=== PATIENT | female | born 1970 | race Caucasian/White ===

== ENCOUNTER 2017-08-02 13:45 | Emergency (ER) | payer MEDICARE, OTHER ==
[~2017-08-02] VITALS: Ht 170.2 cm; Wt 72.7 kg
[~2017-08-02 13:45] MED LIST: ARIP10TA13 PO; ARIP5TAB7 PO; CRES10 PO; DEXL60CA2 PO; DIVA250T60 PO; DOCU-144 PO; FER325 PO; MELO7.5O PO; METH500T PO; PARO20TA58 PO; QUET400T PO; TRAM50TA2 PO; TRAZ50TA18 PO
[2017-08-02 13:55] VITALS: Ht 170.2 cm; Wt 72.7 kg
[2017-08-02] MEDS ORDERED: HYDROCODONE/APAP (10/325) TAB PO ONE (14:30)
[2017-08-02] MEDS ORDERED: SILVER SULFADIAZINE 1% 50 GM CR TOP ONE (14:30)
[2017-08-02] MEDS ORDERED: SILVER SULFADIAZINE 1% 25 GM CR TOP ONE (15:00)
[2017-08-02] MEDS ORDERED: SILVER SULFADIAZINE 1% 25 GM CR TOP SCH (15:00)
[2017-08-02] MEDS ORDERED: HYDR-902 PO (15:27)
[2017-08-02] MEDS ORDERED: SLSL1C50 TOP (15:27)
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
== END 2017-08-02 16:02 | disposition home or self-care (01) ==
LOC: E/R 13:45
DX: T24.111A Burn of first degree of right thigh, initial encounter (principal); X10.0XXA Contact with hot drinks, initial encounter; Y92.9 Unspecified place or not applicable